=== PATIENT | male | born 1985 | race Caucasian/White ===

== ENCOUNTER 2020-12-30 10:12 | Emergency (ER) | payer MEDICAID | END 2020-12-30 11:43 | disposition home or self-care (01) | LOC: ERS 10:12 | DX: S82.51XA Displaced fracture of medial malleolus of right tibia, initial encounter for closed fracture (principal); S92.141A Displaced dome fracture of right talus, initial encounter for closed fracture; X58.XXXA Exposure to other specified factors, initial encounter ==